=== PATIENT | female | born 1955 | race Caucasian/White ===

== ENCOUNTER → 2016-08-14 | Outpatient (CLI) | payer OTHER | LOC: RAD 13:25 | DX: M25.552 Pain in left hip (principal) ==

== ENCOUNTER → 2017-01-26 | Outpatient (CLI) | payer OTHER | LOC: RAD 11:20 | DX: R06.00 Dyspnea, unspecified (principal); R05 Cough ==

== ENCOUNTER → 2017-02-12 | Outpatient (CLI) | payer OTHER ==
[~2017-02-12] MED LIST: ATENOLOL 25 MG25 M1 PO; B COMPLEX # 11 EACH; FISH OIL 1,001000 M2 PO; LASIX 40 MG TAB40 M2 PO; LIPOTRIAD VISI1 EAC1 PO; MESTINON60 MG; MUCINEX600 MG PO; NEURONTIN 300300 M1 PO; NEXIUM40 MG PO; ORACEA40 MG; OSPHENA60 MG; PREDNISONE 20 M20 MG PO; PROAIR RESPICL90 MCG IH; REQUIP 1 MG TABL1 M1; RESTASIS1 EACH; SYNTHROID50 MCG PO
--- NOTE | ~2017-02-12 | 2DMMODE ---
[facility] [address] [place] [address] 2 D/M-MODE ECHOCARDIOGRAM Name: CLEVEVANDANAPerry CORONEL Room #: REG CL [facility]#: [id number] Admission: 02/12/17 Attend Phys: Silvio Thomas Discharge: Date of : 51 Date of Service: 02/12/17 1304 Report #: [id number] THIS REPORT FOR: //name// APPROVED REPORT Study performed: 02/12/2017 09:56:13 EXAM: Comprehensive 2D, Doppler, and color-flow Echocardiogram Patient Location: Out-Patient Status: routine BSA: 2.14 HR: 85 bpm BP: 167/93 mmHg Rhythm: NSR Other Information Study Quality: Adequate/Body habitus Indications Pulmonary Hypertension 2D Dimensions RVDd: 36.75 mm LVEF(%): 59.61 (>50%) IVSd: 10.60 (7-11mm) LVOT Diam: 21.96 (18-24mm) LVDd: 44.80 mm PWd: 11.14 (7-11mm) Ascending Ao: 33.20 (22-36mm) LVDs: 30.67 (25-40mm) Aortic Root: 32.48 mm Pringle's LVEF: 59.61 % Volumes Left Atrial Volume (Systole) Single Plane 4CH: 49.70 mL Single Plane 2CH: 62.87 mL LA ESV Index: 29.00 mL/m2 Aortic Valve AoV Peak Shay.: 1.49 m/s AO Peak Gr.: 8.82 mmHg LVOT Max P.18 mmHg LVOT Max V: 1.14 m/s DAINA Vmax: 2.90 cm2 Mitral Valve E/A Ratio: 0.8 MV Decel. Time: 108.98 ms [facility] [address] [place] [address] 2 D/M-MODE ECHOCARDIOGRAM Name: VANDANA POON Room #: REG [facility].#: [id number] Admission: 02/12/17 Attend Phys: Silvio Thomas Discharge: Date of : 51 Date of Service: 02/12/17 1304 Report #: [id number] MV E Max Shay.: 0.63 m/s MV A Shay.: 0.76 m/s MV PHT: 31.60 ms IVRT: 64.59 ms Pulmonary Valve PV Peak Shay.: 0.98 m/s PV Peak Gr.: 3.86 mmHg Pulmonary Vein P Vein S: 0.64 m/s P Vein D: 0.36 m/s P Vein S/D Ratio: 1.78 Tricuspid Valve TR Peak Shay.: 1.92 m/s RAP Estimate: 5.00 mmHg TR Peak Gr.: 14.81 mmHg PA Pressure: 20.00 mmHg Left Ventricle The left ventricle is normal size. There is normal LV segmental wall motion. There is normal left ventricular wall thickness. Left ventricular systolic function is normal. LVEF is 55-60%. Mild diastolic dysfunction is present (impaired relaxation pattern). Right Ventricle The right ventricle is normal size. The right ventricular systolic function is normal. Atria The left atrium size is normal. The right atrium size is normal. Aortic Valve The aortic valve is not well visualized. Trace aortic regurgitation. There is no aortic valvular stenosis. Mitral Valve The mitral valve is normal in structure. No mitral regurgitation. No evidence of mitral valve stenosis. Tricuspid Valve The tricuspid valve is normal in structure. Trace tricuspid regurgitation. Estimated PAP is 20mmHg. Pulmonic Valve [facility] [address] [place] [address] 2 D/M-MODE ECHOCARDIOGRAM Name: VANDANA POON [id number] Admission: 02/12/17 Attend Phys: Silvio Thomas Discharge: Date of : 51 Date of Service: 02/12/17 1304 Report #: [id number] Trace pulmonic regurgitation. Great Vessels The aortic root is normal in size. The ascending aorta is normal in size. IVC is normal in size and collapses >50% with inspiration. Pericardium There is no pericardial effusion. <Conclusion> Left ventricular systolic function is normal. There is normal LV segmental wall motion. LVEF 55-60%. Mild diastolic dysfunction is present (impaired relaxation pattern). The aortic valve is not well visualized. No aortic valvular stenosis or insufficiency. The mitral valve is normal in structure. No mitral regurgitation. Normal pulmonary artery pressure There is no pericardial effusion. <ELECTRONICALLY SIGNED> By: Karlo Saavedra MD, FACC 02/12/17 1304 1304 1304 Karlo Saavedra MD, FACC /INF
== END ==
LOC: CV 07:25
DX: I27.20 Pulmonary hypertension, unspecified (principal)

== ENCOUNTER → 2017-02-26 | Outpatient (CLI) | payer OTHER | LOC: CAT 09:45 | DX: R06.00 Dyspnea, unspecified (principal) ==

== ENCOUNTER → 2017-10-18 | Outpatient (CLI) | payer OTHER ==
[~2017-10-18] MED LIST changes: +AUGMENTIN 875-1 EACH PO; -B COMPLEX # 11 EACH; +B COMPLEX # 11 EACH PO; +BREO ELLIPTA 21 EACH INH; +DUONEB 2.5-0.5 M3 ML INH; +FLEXERIL PO; +FLUCONAZOLE 10100 MG PO; -MESTINON60 MG; +MESTINON60 MG PO; +NYSTATIN100000 UNI SWISH&SPIT; -ORACEA40 MG; +ORACEA40 MG PO; -OSPHENA60 MG; +OSPHENA60 MG PO; +OXYCODONE HCL15 MG PO; +OXYCONTIN10 M1 PO; +PAIN PUMP SUBQ; +PAXIL10 MG PO; +PREDNISONE 10 M10 MG PO; +PREDNISONE 5 MG5 M1 PO; -REQUIP 1 MG TABL1 M1; +REQUIP 1 MG TABL1 M1 PO; -RESTASIS1 EACH; +RESTASIS1 EACH OPHTHALMIC; +VITAMIN E400 UNIT PO; +XALATAN2.5 ML OPHTHALMIC
== END ==
LOC: RAD 12:23
DX: R91.8 Other nonspecific abnormal finding of lung field (principal); I70.0 Atherosclerosis of aorta